=== PATIENT | male | born 1955 | race Caucasian/White ===

== ENCOUNTER 2020-08-03 10:43 | Emergency (ER) | payer SELFPAY ==
[2020-08-03 11:14] VITALS: BP 135/77; PULSE 108; TEMP 102.3; BMI 31.3
[2020-08-03 12:41] LABS: BASO % 0.4 % (0-2.0); HEMATOCRIT 42.9 % (35.4-49); HEMOGLOBIN 15.5 GM/dL (11.7-16.9); LYMPH % 10.5 % (8-40); MCHC 36.2 g/dl (32.0-35.9); MEAN PLT VOLUME 8.7 fl (7.5-11.1); MONO % 5.4 % (3.8-10.2); NEUT % 83.7 % (42.8-82.8); PLATELET COUNT 295 K/MM3 (134-434); RBC 5.16 M/mm3 (4.00-5.60); RDW 13.5 % (11.9-15.9); WHITE BLOOD COUNT 10.2 K/mm3 (4.0-10.0)
[2020-08-03 13:07] LABS: POTASSIUM 4.3 mmol/L (3.5-5.1)
[2020-08-03 13:09] LABS: ALBUMIN 3.3 g/dl (3.4-5.0); CALCIUM 8.2 mg/dL (8.5-10.1)
[2020-08-03 13:10] LABS: BLOOD UREA NITROGEN 16.9 mg/dL (7-18)
[2020-08-03 13:14] LABS: BILIRUBIN,TOTAL 0.7 mg/dL (0.2-1)
== END 2020-08-03 15:48 | disposition home or self-care (01) ==
LOC: JER 10:43
DX: J12.82 Pneumonia due to coronavirus disease 2019 (principal); U07.1 COVID-19
CPT/HCPCS: 36415; 71046-TC-FY; 80053; 85025; 99284-25; C9803; U0003